=== PATIENT | female | born 1990 | race Caucasian/White ===

== ENCOUNTER 2017-05-18 09:10 | Emergency (ER) | payer OTHER ==
[~2017-05-18] VITALS: Ht 142.2 cm; Wt 44.5 kg
[2017-05-18] MEDS ORDERED: ZOFRAN ODT4 MG PO (13:26)
[2017-05-18 13:41] VITALS: BP 117/69
== END 2017-05-18 13:45 | disposition home or self-care (01) ==
LOC: EME 09:10
DX: J10.1 Influenza due to other identified influenza virus with other respiratory manifestations (principal); J10.2 Influenza due to other identified influenza virus with gastrointestinal manifestations; Z88.0 Allergy status to penicillin; F17.200 Nicotine dependence, unspecified, uncomplicated
CPT/HCPCS: 87502; 99281; 99284